=== PATIENT | female | born 1985 | race Hispanic/Latino ===

== ENCOUNTER 2021-08-08 00:15 | Emergency (ER) | payer OTHER ==
[2021-08-08 01:59] LABS: POTASSIUM 4.3 mmol/L (3.5-5.1)
[2021-08-08 02:00] LABS: BASOPHILS % (AUTO) 0.8 % (0.0-5.0); HEMATOCRIT 44.6 % (36-48); LYMPHOCYTES % (AUTO) 32.8 % (21.0-51.0); MEAN CORPUSCULAR HEMOGLOBIN 30.5 pg (27.0-33.0); MEAN CORPUSCULAR HGB CONC 32.5 g/dL (32.0-36.0); MEAN CORPUSCULAR VOLUME 93.7 fL (79-99); MONOCYTES % (AUTO) 6.3 % (3.0-13.0); NEUTROPHILS % (AUTO) 58.5 % (40.0-77.0); PLATELET COUNT (AUTO) 284 K/uL (130-400); RED BLOOD CELL COUNT(AUTO) 4.76 MIL/uL (4.00-5.50); RED CELL DISTRIBUTION WIDTH 13.3 % (11.0-15.5); WHITE BLOOD COUNT (AUTO) 5.2 K/uL (4.8-10.8)
[2021-08-08] MEDS ORDERED: 0.9%NACL 1000ML 1,000 ML IV ONE (02:30)
[2021-08-08] MEDS ORDERED: INSULIN HUMULIN R 100 UNIT/ML 3ML SQ ONE (02:30)
[2021-08-08] MEDS ORDERED: SYRI-1554 MC (04:41)
[2021-08-08] MEDS ORDERED: INSLAN SQ (04:41)
[2021-08-08 05:02] VITALS: BP 120/63
== END 2021-08-08 05:24 | disposition home or self-care (01) ==
LOC: EDH 00:15 → EDBD 00:15 → EDH 05:24
DX: T85.614A Breakdown (mechanical) of insulin pump, initial encounter (principal); E10.65 Type 1 diabetes mellitus with hyperglycemia; Y74.2 Prosthetic and other implants, materials and accessory general hospital and personal-use devices associated with adverse incidents
CPT/HCPCS: 36415; 80048; 82948 ×2; 85025; 93005; 96360; 96361; 96372; 99284; J1815; J7030